=== PATIENT | female | born 2000 | race African-American/Black ===

== ENCOUNTER 2023-10-19 12:31 | Emergency (ER) | payer MEDICAID, OTHER ==
[~2023-10-19] VITALS: Ht 157.5 cm; Wt 64.0 kg
[2023-10-19 12:45] VITALS: O2SAT 100
[2023-10-19 13:25] LABS: BASOPHILS % 0.3 % (0.0-2.0); EOSINOPHILS % 0.1 % (0.0-5.0); HEMATOCRIT. 48.3 % (36.0-48.0); HEMOGLOBIN. 16.7 g/dL (12.0-16.0); LYMPHOCYTES % 24.3 % (20.0-50.0); MEAN CORPUSCULAR HEMOGLOBIN 32.2 pg (28.0-32.0); MEAN CORPUSCULAR HGB CONC 34.5 g/dL (31.0-37.0); MEAN CORPUSCULAR VOLUME 93.2 fL (81.0-99.0); MEAN PLATELET VOLUME 9.3 fl (7.4-10.4); MONOCYTES % 4.1 % (2.0-8.0); NEUTROPHILS % 71.2 % (40.0-76.0); PLATELET 241 x1000/uL (130-400); RED BLOOD CELL COUNT 5.18 mill/uL (4.2-5.4); RED CELL DISTRIBUTION WIDTH 12.1 % (11.6-14.6); WHITE BLOOD COUNT 8.2 x1000/uL (4.5-11.0)
[2023-10-19 13:32] LABS: CHLORIDE 95 mEq/L (98-107); SODIUM 130 mEq/L (136-145)
[2023-10-19 13:33] LABS: CALCIUM 9.6 mg/dL (8.7-10.4); CARBON DIOXIDE 13 mEq/L (21-32)
[2023-10-19 13:38] LABS: UREA NITROGEN BLOOD 12 mg/dL (9-23)
[2023-10-19 13:42] LABS: TROPONIN I HIGH SENSITIVITY < 4 ng/L (3.0-34)
[2023-10-19 13:44] LABS: GLUCOSE 418 mg/dL (70-105)
[2023-10-19 14:15] LABS: CLARITY URINE CLEAR (CLEAR); COLOR URINE YELLOW (YELLOW); GLUCOSE URINE 3+ (NEGATIVE); KETONES URINE 4+ (NEGATIVE); LEUKOCYTE ESTERASE URINE NEGATIVE (NEGATIVE); NITRITE URINE NEGATIVE (NEGATIVE); OCCULT BLOOD URINE NEGATIVE (NEGATIVE); PROTEIN URINE NEGATIVE (NEGATIVE); SPECIFIC GRAVITY URINE 1.032 (1.005-1.030); UROBILINOGEN URINE 0.2 E.U./dL (0.2-1.0)
[2023-10-19 14:35] LABS: ALANINE AMINOTRANSFERASE 23 IU/L (10-49); ALBUMIN 4.8 g/dL (3.2-4.8); ASPARTATE AMINOTRANSFERASE 25 IU/L (<34)
[2023-10-19 14:36] LABS: BETA HYDROXYBUTYRATE 6.5 mMol/L (0.0-0.3); BILIRUBIN DIRECT 0.2 mg/dL (<=3.0); BILIRUBIN TOTAL 0.7 mg/dL (0.1-1.0); PROTEIN TOTAL 7.6 g/dL (6.0-8.3)
[2023-10-19] MEDS: ONDANSETRON HCL 4MG/2ML INJ IV STA (14:39)
[2023-10-19] MEDS: SODIUM CHLORIDE 0.9% 1,000 ML IV ONE ×2 (14:39)
[2023-10-19 14:48] LABS: HCG SCREEN NEGATIVE
[2023-10-19 15:03] LABS: SQUAMOUS EPITHELIAL CELL URINE 2+ /lpf (RARE/1+)
[2023-10-19 15:04] LABS: WBC URINE 0-2 /hpf (0-2)
[2023-10-19 15:05] LABS: RBC URINE 0-2 /hpf (0-2)
[2023-10-19 15:06] LABS: BACTERIA URINE TRACE
[2023-10-19] MEDS ORDERED: DEXTROSE 50% WATER 50ML SYRINGE IV PRN ×2 (15:15)
[2023-10-19] MEDS ORDERED: INSULIN REGULAR 100U/100ML PMX 100 ML IV SCH (15:15)
[2023-10-19] MEDS: BLOOD SUGAR DIAGNOSTIC STRIP TEST SCH (16:15)
[2023-10-19] MEDS ORDERED: IPRATROPIUM/ALBUTEROL 0.5-3(2.5)MG/3ML NEB HHN PRN (17:00)
[2023-10-19] MEDS ORDERED: ONDANSETRON HCL 4MG/2ML INJ IV PRN (17:00)
[2023-10-19] MEDS ORDERED: HYDROCODONE/ACETAMINOPHEN 5/325MG TABLET PO PRN (17:00)
[2023-10-19] MEDS ORDERED: NALOXONE HCL 0.4MG/ML VIAL IV PRN (17:00)
[2023-10-19] MEDS: INSULIN REGULAR 100U/100ML PMX 100 ML IV PRN (17:26)
[2023-10-19 17:29] LABS: CHLORIDE 106 mEq/L (98-107); POTASSIUM 4.1 mEq/L (3.5-5.1); SODIUM 134 mEq/L (136-145)
[2023-10-19 17:30] LABS: CARBON DIOXIDE 15 mEq/L (21-32)
[2023-10-19 17:31] LABS: CALCIUM 7.9 mg/dL (8.7-10.4)
[2023-10-19 17:35] LABS: CREATININE 0.6 mg/dL (0.6-1.0); GLUCOSE 231 mg/dL (70-105); UREA NITROGEN BLOOD 9 mg/dL (9-23)
[2023-10-20 07:26] VITALS: BP 103/66; PULSE 81; RESP 17; TEMP 98.6
[2023-10-20] MEDS ORDERED: ENOXAPARIN 40MG/0.4ML SYR SUBCUT SCH (09:00)
== END 2023-10-20 09:06 | disposition left against medical advice (07) ==
LOC: ER 12:31 → EDBEDREQTM 15:50 → EDBEDREQ 15:50 → ER 10-20 09:06
DX: E11.10 Type 2 diabetes mellitus with ketoacidosis without coma (principal)
CPT/HCPCS: 80076; 80048; 81003; 81025; 82010; 82962; 84703; 85025; 84484; 36415; 71045; 74176; 93005; 96361; 96374; 99291; J2405; J7030; Z7610 ×3; J1815